=== PATIENT | male | born 1965 | race Hispanic/Latino ===

== ENCOUNTER 2021-04-26 17:16 | Inpatient (IN) | payer OTHER ==
[~2021-04-26] VITALS: Ht 180.3 cm; Wt 80.7 kg
[2021-04-26 17:43] LABS: ABG BASE EXCESS 0.1 mmol/L (-2.0-3.0); ABG HCO3 24.9 mmol/L (21.0-28.0); ABG OXYGEN SATURATION 86.2 % (95.0-99.0); ABG PCO2 41 mmHg (35-48)
[2021-04-26 17:52] LABS: BASOPHILS % (AUTO) 0.2 % (0.0-5.0); HEMATOCRIT 46.2 % (42-54); LYMPHOCYTES % (AUTO) 12.3 % (21.0-51.0); MEAN CORPUSCULAR HEMOGLOBIN 32.5 pg (27.0-33.0); MEAN CORPUSCULAR HGB CONC 34.2 g/dL (32.0-36.0); MEAN CORPUSCULAR VOLUME 95.1 fL (79-99); MONOCYTES % (AUTO) 6.2 % (3.0-13.0); NEUTROPHILS % (AUTO) 80.9 % (40.0-77.0); PLATELET COUNT (AUTO) 140 K/uL (130-400); RED BLOOD CELL COUNT(AUTO) 4.86 MIL/uL (4.50-6.20); RED CELL DISTRIBUTION WIDTH 13.2 % (11.0-15.5); WHITE BLOOD COUNT (AUTO) 9.5 K/uL (4.8-10.8)
[2021-04-26 17:55] LABS: CREATININE 1.2 mg/dL (0.5-1.5); POTASSIUM 3.5 mmol/L (3.5-5.1)
[2021-04-26 18:00] LABS: ALBUMIN 3.2 g/dL (3.5-5.0); BILIRUBIN,TOTAL 0.4 mg/dL (0.2-1.0); CRP QUANTITATIVE 131.5 mg/L (0.00-9.0); TOTAL PROTEIN, SERUM 8.2 g/dL (6.0-8.3)
[2021-04-26] MEDS ORDERED: ALBUTEROL INHALER 90MCG/INH IH PRN (18:00)
[2021-04-26] MEDS ORDERED: ACETAMINOPHEN WITH CODEINE 1 TAB TAB PO ONE (18:00)
[2021-04-26 18:03] VITALS: BP 136/77
[2021-04-26 18:37] LABS: B-TYPE NATRIURETIC PEPTIDE 65 pg/mL (0-100)
[2021-04-26] MEDS ORDERED: DEXAMETHASONE SOD PHOSPHATE 4 MG/ML 1ML VIAL IVP SCH (19:30)
[2021-04-26] MEDS ORDERED: ONDANSETRON 4MG INJ IV PRN (19:30)
[2021-04-26] MEDS ORDERED: ACETAMINOPHEN 325 MG TAB PO PRN ×2 (19:30)
[2021-04-26] MEDS ORDERED: LACTULOSE 20 GM/30 ML UDCUP PO PRN (19:30)
[2021-04-26] MEDS ORDERED: IOHEXOL 350 MG/ML 100ML INFUS..BTL IV ONE (19:42)
[2021-04-26 19:51] VITALS: BP 136/77
[2021-04-26] MEDS ORDERED: COMPOUND IV REFRIGERATED 1 EACH IVSOLN MISC PRN (20:30)
[2021-04-26] MEDS ORDERED: PHARMACY COMMUNICATION**REMDESIVIR ORDER MISC SCH (20:30)
[2021-04-26] MEDS ORDERED: REMDESIVIR (EUA) 520 200 MG in 0.9% NACL 250ML 250 ML IV SCH (21:00)
[2021-04-26] MEDS: FAMOTIDINE 20MG TAB PO SCH (21:42)
[2021-04-27 02:03] VITALS: BP 123/82
[2021-04-27 07:09] LABS: ALBUMIN 2.8 g/dL (3.5-5.0); BILIRUBIN,TOTAL 0.4 mg/dL (0.2-1.0); CREATININE 1.1 mg/dL (0.5-1.5); CRP QUANTITATIVE 151.4 mg/L (0.00-9.0); POTASSIUM 4.4 mmol/L (3.5-5.1); TOTAL PROTEIN, SERUM 7.5 g/dL (6.0-8.3)
[2021-04-27] MEDS ORDERED: ENOXAPARIN SODIUM 40 MG/0.4 ML SYRINGE SQ SCH (09:00)
[2021-04-27] MEDS: FAMOTIDINE 20MG TAB PO SCH ×2 (09:21→21:16)
[2021-04-27 09:30] VITALS: BP 111/71
[2021-04-27 10:50] VITALS: BP 151/94
[2021-04-27 16:00] VITALS: BP 143/84
[2021-04-27 19:01] LABS: BASOPHILS % (AUTO) 0.1 % (0.0-5.0); HEMATOCRIT 45.7 % (42-54); MEAN CORPUSCULAR HEMOGLOBIN 32.1 pg (27.0-33.0); MEAN CORPUSCULAR HGB CONC 33.9 g/dL (32.0-36.0); MEAN CORPUSCULAR VOLUME 94.6 fL (79-99); MONOCYTES % (AUTO) 8.5 % (3.0-13.0); NEUTROPHILS % (AUTO) 80.9 % (40.0-77.0); PLATELET COUNT (AUTO) 159 K/uL (130-400); RED BLOOD CELL COUNT(AUTO) 4.83 MIL/uL (4.50-6.20); RED CELL DISTRIBUTION WIDTH 13.3 % (11.0-15.5); WHITE BLOOD COUNT (AUTO) 8.4 K/uL (4.8-10.8)
[2021-04-27 20:16] VITALS: BP 139/86
[2021-04-27] MEDS: DEXAMETHASONE SOD PHOSPHATE 4 MG/ML 1ML VIAL IVP SCH (21:17)
[2021-04-27] MEDS: REMDESIVIR (EUA) 520 100 MG in 0.9% NACL 250ML 250 ML IV SCH (21:18)
[2021-04-27] MEDS: ENOXAPARIN SODIUM 40 MG/0.4 ML SYRINGE SQ SCH (21:20)
[2021-04-28] VITALS (7 sets, daily range): BP systolic 136–150; BP diastolic 72–81
[2021-04-28] MEDS: REMDESIVIR LABS MISC SCH (06:00)
[2021-04-28 06:05] LABS: BASOPHILS % (AUTO) 0.3 % (0.0-5.0); HEMATOCRIT 46.4 % (42-54); LYMPHOCYTES % (AUTO) 10.8 % (21.0-51.0); MEAN CORPUSCULAR HGB CONC 33.4 g/dL (32.0-36.0); MEAN CORPUSCULAR VOLUME 95.9 fL (79-99); MONOCYTES % (AUTO) 6.8 % (3.0-13.0); NEUTROPHILS % (AUTO) 81.6 % (40.0-77.0); PLATELET COUNT (AUTO) 178 K/uL (130-400); RED BLOOD CELL COUNT(AUTO) 4.84 MIL/uL (4.50-6.20); RED CELL DISTRIBUTION WIDTH 13.2 % (11.0-15.5); WHITE BLOOD COUNT (AUTO) 7.6 K/uL (4.8-10.8)
[2021-04-28 06:31] LABS: ALBUMIN 2.7 g/dL (3.5-5.0); BILIRUBIN,TOTAL 0.4 mg/dL (0.2-1.0); CREATININE 0.9 mg/dL (0.5-1.5); CRP QUANTITATIVE 97.9 mg/L (0.00-9.0); POTASSIUM 3.8 mmol/L (3.5-5.1); TOTAL PROTEIN, SERUM 7.7 g/dL (6.0-8.3)
[2021-04-28] MEDS: DEXAMETHASONE SOD PHOSPHATE 4 MG/ML 1ML VIAL IVP SCH ×2 (09:40→19:40)
[2021-04-28] MEDS: FAMOTIDINE 20MG TAB PO SCH ×2 (09:40→19:39)
[2021-04-28] MEDS: ENOXAPARIN SODIUM 40 MG/0.4 ML SYRINGE SQ SCH ×2 (09:42→19:41)
[2021-04-28 19:29] LABS: BASOPHILS % (AUTO) 0.2 % (0.0-5.0); HEMATOCRIT 45.3 % (42-54); LYMPHOCYTES % (AUTO) 12.6 % (21.0-51.0); MEAN CORPUSCULAR HEMOGLOBIN 32.9 pg (27.0-33.0); MEAN CORPUSCULAR HGB CONC 34.2 g/dL (32.0-36.0); MEAN CORPUSCULAR VOLUME 96.2 fL (79-99); MONOCYTES % (AUTO) 10.4 % (3.0-13.0); NEUTROPHILS % (AUTO) 76.1 % (40.0-77.0); PLATELET COUNT (AUTO) 180 K/uL (130-400); RED BLOOD CELL COUNT(AUTO) 4.71 MIL/uL (4.50-6.20); RED CELL DISTRIBUTION WIDTH 13.1 % (11.0-15.5)
[2021-04-28] MEDS ORDERED: BENZONATATE 100 MG CAPSULE PO PRN (19:30)
[2021-04-28] MEDS: GUAIFENESIN-DM 200/20 MG 10 ML PO SCH (19:39)
[2021-04-28] MEDS: REMDESIVIR (EUA) 520 100 MG in 0.9% NACL 250ML 250 ML IV SCH (19:41)
[2021-04-29] MEDS: GUAIFENESIN-DM 200/20 MG 10 ML PO SCH ×2 (00:46→09:45)
[2021-04-29 05:00] VITALS: BP 138/81
[2021-04-29 05:19] LABS: BASOPHILS % (AUTO) 0.2 % (0.0-5.0); HEMATOCRIT 43.8 % (42-54); LYMPHOCYTES % (AUTO) 14.9 % (21.0-51.0); MEAN CORPUSCULAR HEMOGLOBIN 32.2 pg (27.0-33.0); MEAN CORPUSCULAR HGB CONC 34.2 g/dL (32.0-36.0); MONOCYTES % (AUTO) 9.4 % (3.0-13.0); NEUTROPHILS % (AUTO) 74.9 % (40.0-77.0); PLATELET COUNT (AUTO) 193 K/uL (130-400); RED BLOOD CELL COUNT(AUTO) 4.66 MIL/uL (4.50-6.20); RED CELL DISTRIBUTION WIDTH 13.1 % (11.0-15.5); WHITE BLOOD COUNT (AUTO) 5.4 K/uL (4.8-10.8)
[2021-04-29 05:35] LABS: ALBUMIN 2.6 g/dL (3.5-5.0); BILIRUBIN,TOTAL 0.5 mg/dL (0.2-1.0); CREATININE 0.9 mg/dL (0.5-1.5); CRP QUANTITATIVE 51.1 mg/L (0.00-9.0); POTASSIUM 3.7 mmol/L (3.5-5.1); TOTAL PROTEIN, SERUM 7.4 g/dL (6.0-8.3)
[2021-04-29] MEDS: REMDESIVIR LABS MISC SCH (06:00)
[2021-04-29 08:00] VITALS: BP 125/64
[2021-04-29] MEDS: ENOXAPARIN SODIUM 40 MG/0.4 ML SYRINGE SQ SCH ×2 (09:45→21:16)
[2021-04-29] MEDS: DEXAMETHASONE SOD PHOSPHATE 4 MG/ML 1ML VIAL IVP SCH (09:45)
[2021-04-29] MEDS: FAMOTIDINE 20MG TAB PO SCH ×2 (09:45→21:16)
[2021-04-29 12:02] VITALS: BP 112/65
[2021-04-29] MEDS ORDERED: PANTOPRAZOLE 40 MG TAB DR PO SCH (13:00)
[2021-04-29] MEDS ORDERED: CEFTRIAXONE 1G VIAL IVP ONE (13:30)
[2021-04-29] MEDS: IPRATROPIUM 0.5 MG/2.5 ML INH IH SCH ×2 (13:30→18:00)
[2021-04-29] MEDS: 0.9% NACL 250ML IVPB SCH (13:54)
[2021-04-29] MEDS: DOXYCYCLINE 100MG+NS 250ML IV SCH (13:54)
[2021-04-29] MEDS: GUAIFENESIN-CODEINE 5 ML SYRUP PO SCH ×2 (13:54→21:14)
[2021-04-29 18:33] VITALS: BP 138/74
[2021-04-29 20:00] VITALS: BP 159/75
[2021-04-29] MEDS: REMDESIVIR (EUA) 520 100 MG in 0.9% NACL 250ML 250 ML IV SCH (21:14)
[2021-04-30] VITALS (7 sets, daily range): BP systolic 119–176; BP diastolic 61–86
[2021-04-30] MEDS: 0.9% NACL 250ML IVPB SCH ×2 (01:00→12:26)
[2021-04-30] MEDS: DOXYCYCLINE 100MG+NS 250ML IV SCH ×2 (02:30→12:26)
[2021-04-30] MEDS: GUAIFENESIN-CODEINE 5 ML SYRUP PO SCH ×4 (02:30→18:30)
[2021-04-30 05:03] LABS: BASOPHILS % (AUTO) 0.1 % (0.0-5.0); HEMATOCRIT 44.8 % (42-54); LYMPHOCYTES % (AUTO) 11.2 % (21.0-51.0); MEAN CORPUSCULAR HEMOGLOBIN 32.2 pg (27.0-33.0); MEAN CORPUSCULAR HGB CONC 33.7 g/dL (32.0-36.0); MEAN CORPUSCULAR VOLUME 95.5 fL (79-99); MONOCYTES % (AUTO) 9.8 % (3.0-13.0); NEUTROPHILS % (AUTO) 78.3 % (40.0-77.0); PLATELET COUNT (AUTO) 196 K/uL (130-400); RED BLOOD CELL COUNT(AUTO) 4.69 MIL/uL (4.50-6.20); WHITE BLOOD COUNT (AUTO) 8.2 K/uL (4.8-10.8)
[2021-04-30] MEDS: IPRATROPIUM 0.5 MG/2.5 ML INH IH SCH ×4 (06:00→18:00)
[2021-04-30] MEDS: REMDESIVIR LABS MISC SCH (06:00)
[2021-04-30] MEDS: PANTOPRAZOLE 40 MG TAB DR PO SCH (09:00)
[2021-04-30] MEDS: ENOXAPARIN SODIUM 40 MG/0.4 ML SYRINGE SQ SCH ×2 (09:43→21:37)
[2021-04-30] MEDS: DEXAMETHASONE SOD PHOSPHATE 4 MG/ML 1ML VIAL IVP SCH (09:43)
[2021-04-30] MEDS: FAMOTIDINE 20MG TAB PO SCH (09:43)
[2021-04-30] MEDS: CEFTRIAXONE 1G VIAL IVP SCH ×2 (12:26→21:38)
[2021-04-30] MEDS: REMDESIVIR (EUA) 520 100 MG in 0.9% NACL 250ML 250 ML IV SCH (21:35)
[2021-05-01] MEDS: DOXYCYCLINE 100MG+NS 250ML IV SCH ×2 (01:36→14:08)
[2021-05-01] MEDS: GUAIFENESIN-CODEINE 5 ML SYRUP PO SCH ×4 (01:36→19:52)
[2021-05-01] MEDS: 0.9% NACL 250ML IVPB SCH ×3 (01:36→23:48)
[2021-05-01 05:37] VITALS: BP 167/88
[2021-05-01] MEDS: IPRATROPIUM 0.5 MG/2.5 ML INH IH SCH ×2 (06:00)
[2021-05-01 07:03] LABS: BASOPHILS % (AUTO) 0.2 % (0.0-5.0); HEMATOCRIT 44.5 % (42-54); LYMPHOCYTES % (AUTO) 14.6 % (21.0-51.0); MEAN CORPUSCULAR HEMOGLOBIN 32.2 pg (27.0-33.0); MEAN CORPUSCULAR HGB CONC 33.9 g/dL (32.0-36.0); MEAN CORPUSCULAR VOLUME 94.9 fL (79-99); NEUTROPHILS % (AUTO) 77.1 % (40.0-77.0); PLATELET COUNT (AUTO) 224 K/uL (130-400); RED BLOOD CELL COUNT(AUTO) 4.69 MIL/uL (4.50-6.20); RED CELL DISTRIBUTION WIDTH 12.8 % (11.0-15.5); WHITE BLOOD COUNT (AUTO) 9.6 K/uL (4.8-10.8)
[2021-05-01 07:22] LABS: ALBUMIN 2.6 g/dL (3.5-5.0); BILIRUBIN,TOTAL 0.7 mg/dL (0.2-1.0); CREATININE 0.9 mg/dL (0.5-1.5); CRP QUANTITATIVE 26.8 mg/L (0.00-9.0); POTASSIUM 3.3 mmol/L (3.5-5.1); TOTAL PROTEIN, SERUM 7.4 g/dL (6.0-8.3)
[2021-05-01 08:00] VITALS: BP 182/82
[2021-05-01] MEDS: CEFTRIAXONE 1G VIAL IVP SCH (09:14)
[2021-05-01] MEDS: DEXAMETHASONE SOD PHOSPHATE 4 MG/ML 1ML VIAL IVP SCH (09:14)
[2021-05-01] MEDS: ENOXAPARIN SODIUM 40 MG/0.4 ML SYRINGE SQ SCH ×2 (09:15→20:38)
[2021-05-01] MEDS: PANTOPRAZOLE 40 MG TAB DR PO SCH (09:15)
[2021-05-01 12:00] VITALS: BP 109/58
[2021-05-01 16:00] VITALS: BP 105/67
[2021-05-01 20:02] VITALS: BP 142/88
[2021-05-02] VITALS (7 sets, daily range): BP systolic 96–146; BP diastolic 57–86
[2021-05-02] MEDS: GUAIFENESIN-CODEINE 5 ML SYRUP PO SCH ×4 (00:02→20:08)
[2021-05-02 06:43] LABS: BASOPHILS % (AUTO) 0.2 % (0.0-5.0); EOSINOPHILS % (AUTO) 0.3 % (0.0-8.0); HEMATOCRIT 44.9 % (42-54); LYMPHOCYTES % (AUTO) 18.5 % (21.0-51.0); MEAN CORPUSCULAR HEMOGLOBIN 32.1 pg (27.0-33.0); MEAN CORPUSCULAR HGB CONC 34.1 g/dL (32.0-36.0); MEAN CORPUSCULAR VOLUME 94.1 fL (79-99); MONOCYTES % (AUTO) 7.2 % (3.0-13.0); NEUTROPHILS % (AUTO) 72.5 % (40.0-77.0); PLATELET COUNT (AUTO) 230 K/uL (130-400); RED BLOOD CELL COUNT(AUTO) 4.77 MIL/uL (4.50-6.20); RED CELL DISTRIBUTION WIDTH 12.4 % (11.0-15.5); WHITE BLOOD COUNT (AUTO) 8.6 K/uL (4.8-10.8)
[2021-05-02 06:57] LABS: CREATININE 0.9 mg/dL (0.5-1.5); CRP QUANTITATIVE 46.4 mg/L (0.00-9.0); POTASSIUM 3.5 mmol/L (3.5-5.1)
[2021-05-02] MEDS: PANTOPRAZOLE 40 MG TAB DR PO SCH (08:52)
[2021-05-02] MEDS: DEXAMETHASONE SOD PHOSPHATE 4 MG/ML 1ML VIAL IVP SCH (08:52)
[2021-05-02] MEDS: ENOXAPARIN SODIUM 40 MG/0.4 ML SYRINGE SQ SCH ×2 (08:54→20:17)
[2021-05-02] MEDS ORDERED: DOXYCYCLINE 100MG+NS 250ML 250 ML IV ONE (14:02)
[2021-05-02] MEDS: 0.9% NACL 250ML IVPB SCH (14:07)
[2021-05-03] MEDS: GUAIFENESIN-CODEINE 5 ML SYRUP PO SCH ×3 (00:54→12:11)
[2021-05-03] MEDS: 0.9% NACL 250ML IVPB SCH (01:00)
[2021-05-03 03:56] VITALS: BP 138/86
[2021-05-03 04:14] LABS: ABG BASE EXCESS 2.4 mmol/L (-2.0-3.0); ABG HCO3 25.6 mmol/L (21.0-28.0); ABG OXYGEN SATURATION 91.7 % (95.0-99.0); ABG PCO2 36 mmHg (35-48)
[2021-05-03 05:24] LABS: ALBUMIN 2.3 g/dL (3.5-5.0); BILIRUBIN,TOTAL 0.7 mg/dL (0.2-1.0); CREATININE 0.8 mg/dL (0.5-1.5); POTASSIUM 3.5 mmol/L (3.5-5.1); TOTAL PROTEIN, SERUM 6.8 g/dL (6.0-8.3)
[2021-05-03 08:19] VITALS: BP 119/70
[2021-05-03] MEDS: PANTOPRAZOLE 40 MG TAB DR PO SCH (09:15)
[2021-05-03] MEDS: DEXAMETHASONE SOD PHOSPHATE 4 MG/ML 1ML VIAL IVP SCH (09:15)
[2021-05-03] MEDS: ENOXAPARIN SODIUM 40 MG/0.4 ML SYRINGE SQ SCH (09:16)
[2021-05-03 11:44] VITALS: BP 119/58
[2021-05-03] MEDS ORDERED: PANT40TA55 PO (13:58)
[2021-05-03] MEDS ORDERED: APIX2.5T PO (13:58)
[2021-05-03] MEDS ORDERED: DEXA6TAB PO (13:58)
[2021-05-03 15:58] VITALS: BP 127/67
== END 2021-05-03 16:49 | disposition home or self-care (01) | DRG 177 ==
LOC: EEVIPCON 17:16 → EDH 17:16 → EDHIP 17:17 → OBSVTOIN 17:17 → 4AH 04-27 11:00
PROVIDERS: ADMIT Internal Medicine; ATTEND Internal Medicine
PROC: XW033E5 Introduction of Remdesivir Anti-infective into Peripheral Vein, Percutaneous Approach, New Technology Group 5 (ICD-10-PCS; principal; 2021-04-27)
DX: U07.1 COVID-19 (principal); J96.01 Acute respiratory failure with hypoxia; J12.82 Pneumonia due to coronavirus disease 2019; D68.69 Other thrombophilia
CPT/HCPCS: 36415; 36600; 71045; 71275; 80048; 80053; 82435; 82728; 82803; 82947; 83605; 83615; 83880; 84132; 84145; 84295; 84484; 85018; 85025; 85378; 86140; 87635; 87804; 87880; 93005; 94760; C9803; G0378; J0696; J1100; J1650; J3490; J7050; Q9967